=== PATIENT | female | born 1995 | race African-American/Black ===

== ENCOUNTER 2022-05-07 13:28 | Outpatient (CLI) | payer OTHER | END 2022-05-07 14:39 | disposition home or self-care (01) | LOC: PRENATAL 13:28 | PROVIDERS: ATTEND Obstetrics & Gynecology Maternal & Fetal Medicine | DX: O36.80X0 Pregnancy with inconclusive fetal viability, not applicable or unspecified (principal); Z3A.13 13 weeks gestation of pregnancy ==

== ENCOUNTER 2022-07-03 08:15 | Outpatient (CLI) | payer OTHER | END 2022-07-03 10:02 | disposition home or self-care (01) | LOC: PRENATAL 08:15 | PROVIDERS: ATTEND Obstetrics & Gynecology Maternal & Fetal Medicine | DX: O35.3XX0 Maternal care for (suspected) damage to fetus from viral disease in mother, not applicable or unspecified (principal); O35.9XX0 Maternal care for (suspected) fetal abnormality and damage, unspecified, not applicable or unspecified; Z3A.21 21 weeks gestation of pregnancy ==

== ENCOUNTER 2022-09-18 09:06 | Outpatient (CLI) | payer OTHER | END 2022-09-18 10:13 | disposition home or self-care (01) | LOC: PRENATAL 09:06 | PROVIDERS: ATTEND Obstetrics & Gynecology Maternal & Fetal Medicine | DX: O35.9XX0 Maternal care for (suspected) fetal abnormality and damage, unspecified, not applicable or unspecified (principal); O26.849 Uterine size-date discrepancy, unspecified trimester; O36.8199 Decreased fetal movements, unspecified trimester, other fetus; Z3A.32 32 weeks gestation of pregnancy ==

== ENCOUNTER 2022-10-28 09:56 | Inpatient (IN) | payer OTHER ==
[~2022-10-28] VITALS: Ht 182.9 cm; Wt 123.8 kg
[2022-11-04] MEDS ORDERED: PRENATAL TABLE1 EAC1 PO (08:11)
== END 2022-11-07 13:28 | disposition home or self-care (01) | DRG 807 ==
LOC: LDR 11-04 07:44 → OB/GYN 11-04 14:15
PROVIDERS: ADMIT Obstetrics & Gynecology; ATTEND Obstetrics & Gynecology
PROC: 3E0P7VZ Introduction of Hormone into Female Reproductive, Via Natural or Artificial Opening (ICD-10-PCS; 2022-11-04)
PROC: 4A1HXCZ Monitoring of Products of Conception, Cardiac Rate, External Approach (ICD-10-PCS; 2022-11-04)
PROC: 10E0XZZ Delivery of Products of Conception, External Approach (ICD-10-PCS; principal; 2022-11-05)
PROC: 0UQMXZZ Repair Vulva, External Approach (ICD-10-PCS; 2022-11-05)
PROC: 0W8NXZZ Division of Female Perineum, External Approach (ICD-10-PCS; 2022-11-05)
PROC: 3E033VJ Introduction of Other Hormone into Peripheral Vein, Percutaneous Approach (ICD-10-PCS; 2022-11-05)
DX: O70.0 First degree perineal laceration during delivery (principal); Z37.0 Single live birth; Z3A.39 39 weeks gestation of pregnancy; Z20.822 Contact with and (suspected) exposure to COVID-19

== ENCOUNTER 2023-05-07 12:41 | Emergency (ER) | payer OTHER ==
[~2023-05-07] VITALS: Ht 182.9 cm; Wt 114.8 kg
[~2023-05-07 12:41] MED LIST: PRENATAL TABLE1 EAC1 PO
[2023-05-07] MEDS ORDERED: DUI500 PO (13:37)
[2023-05-07] MEDS ORDERED: DICLOFENAC SODI75 MG PO (13:37)
== END 2023-05-07 14:04 | disposition home or self-care (01) ==
LOC: ER 12:42
DX: L03.113 Cellulitis of right upper limb (principal); S60.561A Insect bite (nonvenomous) of right hand, initial encounter; W57.XXXA Bitten or stung by nonvenomous insect and other nonvenomous arthropods, initial encounter; Y93.89 Activity, other specified; Y92.89 Other specified places as the place of occurrence of the external cause

== ENCOUNTER 2024-03-04 17:40 | Emergency (ER) | payer OTHER ==
[~2024-03-04] VITALS: Ht 182.9 cm; Wt 104.3 kg
[~2024-03-04 17:40] MED LIST changes: +DICLOFENAC SODI75 MG PO; +DUI500 PO
[2024-03-04 18:11] VITALS: BP 133/84; O2SAT 98
[2024-03-04 19:38] LABS: HEMATOCRIT 34.7 % (36.0-45.00); MEAN CELL VOLUME 75.4 fL (80.00-100.00); MEAN CORPUSCULAR HEMOGLOBIN 23.9 pg (27.00-32.0); MEAN CORPUSCULAR HGB CONC 31.8 g/dl (32.0-36.0); PLATELET COUNT 284 K/uL (150-450); RED CELL DISTRIBUTION WIDTH 15.2 % (11.5-14.5)
[2024-03-04] MEDS ORDERED: CLINDAMYCIN PHOSPHATE 150 MG/ML (300mg) IM STA (20:48)
[2024-03-04] MEDS ORDERED: KETOROLAC TROMETHAMINE 30 MG VIAL IM STA (20:49)
[2024-03-04] MEDS ORDERED: CLINDAMYCIN PHOSPHATE 150 MG/ML (300mg) ONE (20:55)
[2024-03-04] MEDS ORDERED: KETOROLAC TROMETHAMINE 30 MG VIAL ONE (20:55)
== END 2024-03-04 21:33 | disposition home or self-care (01) ==
LOC: ER 17:42
PROVIDERS: Preventive Medicine Public Health & General Preventive Medicine
DX: L03.115 Cellulitis of right lower limb (principal)

== ENCOUNTER 2024-11-29 14:21 | Outpatient (CLI) | payer OTHER | END 2024-11-29 14:23 | disposition home or self-care (01) | LOC: PRENATAL 14:21 | PROVIDERS: ATTEND Obstetrics & Gynecology Maternal & Fetal Medicine | DX: O36.80X0 Pregnancy with inconclusive fetal viability, not applicable or unspecified (principal); Z36.82 Encounter for antenatal screening for nuchal translucency; Z14.8 Genetic carrier of other disease; Z3A.12 12 weeks gestation of pregnancy ==

== ENCOUNTER 2025-01-24 07:11 | Outpatient (CLI) | payer OTHER | END 2025-01-24 07:12 | disposition home or self-care (01) | LOC: PRENATAL 07:11 | PROVIDERS: ATTEND Obstetrics & Gynecology Maternal & Fetal Medicine | DX: O44.00 Complete placenta previa NOS or without hemorrhage, unspecified trimester (principal); Z3A.21 21 weeks gestation of pregnancy ==